=== PATIENT | male | born 1945 | race Caucasian/White ===

== ENCOUNTER 2017-06-18 16:13 | Emergency (ER) | payer OTHER ==
[2017-06-18 16:31] VITALS: BP 144/73
[2017-06-18] MEDS ORDERED: TETANUS IMMUNE GLOBULIN/PF 250 UNIT DISP.SYRIN IM ONE (17:21)
[2017-06-18] MEDS ORDERED: DIPH,PERTUSS(ACELL),TET VAC/PF 0.5 ML DISP.SYRIN IM ONE (17:22)
--- NOTE | 2017-06-18 17:56 | ED Physician Documentation ---
General Adult - HISTORIAN Historian: patient - HPI Stated Complaint: fish hook right ring finger Chief Complaint: General Adult Onset: hours (1-2 hours) Timing: still present Severity: mild Context: reaching down, got finger caught on fishhook Further Comments: yes (Patient was reaching down to get something and got his finger caught on a fishhook in the right 4 th distal diget.) - ROS CONST: no problems - PAST HX Past History: A-Fib, CHF, other (BPH) Other History: none Surgeries/Procedures: cholecystectomy, other (corneal tranplant, inguinal hernia repair) Immunizations: denies: tetanus ([place]) Allergies/Adverse Reactions: Allergies Allergy/AdvReac Type Severity Reaction Status Date / Time Penicillins AdvReac Unknown Rash Verified 06/18/17 16:32 Home Medications: Ambulatory Orders Medication Instructions Recorded NK [NK] 06/18/17 - SOCIAL HX Smoking History: non-smoker Alcohol Use: none Drug Use: none - FAMILY HX Family History: No - VITAL SIGNS Vital Signs: Vital Signs Temp Pulse Resp BP Pulse Ox 37.5 F L 67 20 144/73 99 06/18/17 16:13 06/18/17 17:31 06/18/17 17:31 06/18/17 16:13 06/18/17 17:31 - REVIEWED ASSESSMENTS Nursing Assessment Reviewed: Yes Vitals Reviewed: Yes Progress - Progress Progress: [place] was cleaned with betadine. hook cut at the shank. Hook with then pushed thru and removed. ED Results Lab/Radiology - Orders Orders: ED Orders Category Date Time Status Diph,Pertuss(Acell),Tet Vac/Pf [Adacel] Med 06/18/17 17:22 Discontinued 0.5 ml IM .ONCE ONE Tetanus Immune Globulin/Pf [Hypertet S-D 250 Units Med 06/18/17 17:21 Discontinued Syringe] 250 unit IM NOW ONE General Adult Physical Exam - PHYSICAL EXAM GENERAL APPEARANCE: no distress NECK: normal inspection RESPIRATORY: no resp distress, chest non-tender, breath sounds normal CVS: reg rate & rhythm, heart sounds normal, equal pulses SKIN: other (fish hook imbedded) EXTREMITIES: non-tender, normal range of motion NEURO: oriented X3, cognition normal Discharge Clincal Impression: [place] injury to finger Referrals: Sharad Bunch MD [Primary Care Provider] - 2 Days Additional Instructions: Patient advised to watch for infection. Home Medications: Ambulatory Orders NK [NK] 06/18/17 Condition: Stable Disposition: 01 HOME, SELF-CARE Decision to Admit: NO Date of Decison to Admit: 06/18/17 Decision Time: 18:02
== END 2017-06-18 17:31 | disposition home or self-care (01) ==
LOC: ED 16:13
DX: S61.244A Puncture wound with foreign body of right ring finger without damage to nail, initial encounter (principal); X58.XXXA Exposure to other specified factors, initial encounter; Y93.9 Activity, unspecified; Y99.9 Unspecified external cause status
CPT/HCPCS: 90471; 99283

== ENCOUNTER 2017-07-29 14:20 | Outpatient (CLI) | payer OTHER | END 2017-07-29 14:21 | LOC: LABRHC 14:20 | PROVIDERS: ATTEND Nurse Practitioner Family | DX: N32.9 Bladder disorder, unspecified (principal) | CPT/HCPCS: 87086 ==

== ENCOUNTER 2017-08-22 03:25 | Emergency (ER) | payer OTHER ==
[2017-08-22 04:17] LABS: MEAN CORPUSCULAR VOLUME 91.9 fl (80.0-100.0)
--- NOTE | 2017-08-22 04:27 | ED Physician Documentation ---
Male Genitourinary Problems - HISTORIAN Historian: patient, other (sister) - HPI Stated Complaint: Blood in urine, lower abdominal pain Chief Complaint: Male Genitourinary Problems Additional Information: pt c/o sy dx by DR CASTILLO as prostatitis. saw him yesterday foung VERY tender prostate. prescribed ofloxicin cost 1000dollars so didnt get it. had prev been on nitrofurantoin w/no help. additionally pt says has urinated 51 times since 1000 pm last noct Onset: other (had prostatitis several prev times but this seems the worst. saw urologist in past w/ several tests-apparently no other findings) Duration: continues in ED, better (rates pain 10-10 but laughs and jokes and does not appear to be in that much pain) Severity: severe (pt says significant. also pt has b een here) - Associated Symptoms Problems Urinating: blood in urine (had two episodes hematuria tonite but urine clear now-also frequency had lessened) Penile Pain: No Penile Swelling: No Inguinal Mass: No Flank Pain: left sided (andin backpt refuses catheter for residual urine) Abdominal Pain: moderate, suprapubic - ROS CONST: none GI/: denies: nausea, vomiting (but vomited 1x before came here) MS/SKIN/LYMPH: none CVS/RESP: denies: chest pain, shortness of breath - PAST HX Past History: other (reports CHF only plus the prostate) Cardiac Disease: CHF Surgeries/Procedures: none Allergies/Adverse Reactions: Allergies Allergy/AdvReac Type Severity Reaction Status Date / Time Penicillins AdvReac Unknown Rash Verified 08/22/17 03:40 Home Medications: Ambulatory Orders Medication Instructions Recorded Ofloxacin [Ofloxacin] 400 mg PO DAILY 08/22/17 - SOCIAL HX Smoking History: non-smoker Alcohol Use: none Drug Use: none - FAMILY HX Family History: none - VITAL SIGNS Vital Signs: Vital Signs Temp Pulse Resp BP Pulse Ox 98.2 F 87 18 134/96 98 08/22/17 03:25 08/22/17 03:25 08/22/17 03:25 08/22/17 03:25 08/22/17 03:25 - REVIEWED ASSESSMENTS Nursing Assessment Reviewed: Yes Vitals Reviewed: Yes ED Results Lab/Radiology - Lab Results Lab Results: Lab Results 08/22/17 08/22/17 04:10 04:10 WBC 4.90 K/ul K/ul (4.00-12.00) RBC 4.52 M/ul M/ul (3.90-5.20) Hgb 14.0 g/dL g/dL (12.0-18.0) Hct 41.5 % % (37.0-53.0) MCV 91.9 fl fl (80.0-100.0) MCH 31.0 pg pg (28.0-34.0) MCHC 33.8 g/dL g/dL (30.0-36.0) RDW 12.7 % % (11.3-14.3) Plt Count 243 K/mm3 K/mm3 (130-400) Sodium 137 mmol/L mmol/L (137-145) Potassium 3.8 mmol/L mmol/L (3.5-5.1) Chloride 102 mmol/L mmol/L (98-107) Carbon Dioxide 27 mmol/L mmol/L (22-30) BUN 17 mg/dL mg/dL (9-20) Creatinine 0.70 mg/dL mg/dL (0.66-1.25) Estimated Creat Clear 122 Est GFR ( Amer) > 60 (60 - ) Est GFR (Non-Af Amer) > 60 (60 - ) Glucose 97 mg/dL mg/dL (74-106) Calcium 8.3 mg/dL L mg/dL (8.4-10.2) Total Bilirubin 0.3 mg/dL mg/dL (0.2-1.3) AST 16 U/L U/L (15-46) ALT 29 U/L U/L (13-69) Alkaline Phosphatase 59 U/L U/L (38-126) Total Protein 6.7 g/dL g/dL (6.3-8.2) Albumin 3.6 g/dL g/dL (3.5-5.0) - Orders Orders: ED Orders Category Date Time Status Place IV Lock 1T Care 08/22/17 04:04 Active CBC PLATELETS NO DIFF Stat Lab 08/22/17 04:10 Completed CMP Stat Lab 08/22/17 04:10 Completed UA [URINALYSIS] Stat Lab 08/22/17 Ordered Ciprofloxacin HCl [Cipro] Med 08/22/17 04:51 Discontinued 1,000 mg PO NOW ONE HYDROcodone /APAP 5/325 [Goff 5/325] Med 08/22/17 04:54 Discontinued 1 each PO NOW ONE Phenazopyridine HCl [Pyridium] Med 08/22/17 04:53 Discontinued 200 mg PO NOW ONE Male Genitourinary Problems - EXAM General Appearance: mild distress Abdomen: tenderness, other (abdomen distended which pt says due to CHF. his legs are also swollen and HEART IS IRREGULAR.). No: abnml bowel sounds Neck: nml inspection Respiratory: no resp distress, chest non-tender, breath sounds normal. No: wheezes, rales, rhonchi CVS: No: reg rate & rhythm, heart sounds normal Back: non-tender, painless ROM Rectal: other (pt says DR CASTILLO did rectal yest but there was severe exquisite pain-also pt refuses catheter) Extremities: normal range of motion Neuro/Psych: oriented X3, motor nml, sensation nml, mood/affect nml Skin: warm/dry, normal color. No: cyanosis, diaphoresis Discharge Clincal Impression: prostatitis Referrals: Sharad Castillo MD [Primary Care Provider] - 2 Days Comments: pt to see DR CASTILLO today w/o fail. he would not allow catheter but his urine is now very clear Condition: Fair Disposition: 01 HOME, SELF-CARE Decision to Admit: NO Decision Time: 05:00
[2017-08-22 04:28] LABS: eGFR (African) > 60; eGFR (Non-African) > 60
[2017-08-22] MEDS: HYDROcodone /APAP 5/325 1 EACH TABLET PO ONE (05:00)
[2017-08-22] MEDS: PHENAZOPYRIDINE HCL 200 MG TABLET PO ONE (05:00)
[2017-08-22] MEDS: CIPROFLOXACIN HCL 500 MG TABLET PO ONE (05:00)
[2017-08-22 05:20] VITALS: BP 136/82
[2017-08-22 05:47] LABS: APPEARANCE,URINE CLEAR (CLEAR); COLOR,URINE YELLOW (YELLOW); OCCULT BLOOD,URINE NEGATIVE (NEGATIVE); PH URINE 6.5 (5.0 - 8.0)
== END 2017-08-22 05:15 | disposition home or self-care (01) ==
LOC: ED 03:25
DX: N41.9 Inflammatory disease of prostate, unspecified (principal)
CPT/HCPCS: 80053; 81002; 85027; A9270; 99283; S1016

== ENCOUNTER 2017-08-27 11:52 | Outpatient (CLI) | payer OTHER | END 2017-08-27 11:53 | LOC: CARD 11:52 | PROVIDERS: ATTEND Internal Medicine Cardiovascular Disease | DX: I50.9 Heart failure, unspecified (principal); Z86.79 Personal history of other diseases of the circulatory system | CPT/HCPCS: 99213 ==

== ENCOUNTER 2017-09-30 10:24 | Day surgery (SDC) | payer OTHER ==
[~2017-09-30 10:24] MED LIST: LACTATED RINGERS 1,000 ML IV.SOLN IV ONE; LIDOCAINE HCL/PF 2% 100 MG/5 ML VIAL IJ ONE; PROPOFOL 200 MG/20 ML VIAL IV ONE; SALINE FLUSH 10 ML DISP.SYRIN IVF ONE
--- NOTE | 2017-09-30 14:01 | GI Report ---
REFERRING PHYSICIAN: Dr. Sharad Bunch TOWN CLERK: Jerome Mead MD PROCEDURE MEDICATION: Propofol as per anesthesia. INDICATIONS: The patient is a 71-year-old man who is referred for a screening. His last colonoscopy was over 10 years ago. Apparently, he has had some prostatitis. He has occasionally had atrial fibrillation in the past. He is referred for screening for the above indications. PROCEDURE PERFORMED: Colonoscopy and polypectomy. DESCRIPTION OF PROCEDURE: An Olympus video colonoscope was advanced to the rectum. In the sigmoid, he does have some diverticula. The prep was just fair. There was kind of a dark fluid throughout the whole colon. We had to lavage many areas trying to improve visibility. There was a polyp at 30 cm in the sigmoid removed with electrocautery about 4 mm in size and a sessile. It was a redundant colon and took some maneuvering to get to the base of the cecum. We had to lavage the cecum to kind of clear the view. The appendiceal orifice was identified. The ileocecal valve was identified. On slow withdrawal, the cecum, ascending colon , and transverse colon had no obvious intraluminal lesions though the prep was just fair. The descending colon and sigmoid colon showed fairly extensive diverticular disease and the 4 mm sessile polyp removed at 30 cm in the sigmoid as described. Retroflexion of the rectum showed hemorrhoids. Patient tolerated the procedure well. FINDINGS: 1. Sigmoid polyp removed. 2. Diverticular disease of the colon. RECOMMENDATIONS: 1. Increase fiber in his diet. 2. Consider re-looking at his colon in 5 years pending the pathology on the polyp. 3. Next time, he needs to start his prep a day earlier to improve visibility. cc: Dr. Sharad RUIZ
== END 2017-09-30 10:25 ==
LOC: OPSURG 10:24
PROVIDERS: ATTEND Internal Medicine Gastroenterology
DX: Z12.11 Encounter for screening for malignant neoplasm of colon (principal); D12.5 Benign neoplasm of sigmoid colon; K57.30 Diverticulosis of large intestine without perforation or abscess without bleeding; I48.91 Unspecified atrial fibrillation
CPT/HCPCS: 45385; 88305; J2001; J2704; J7120; S1016

== ENCOUNTER 2018-08-12 17:10 | Outpatient (CLI) | payer MEDICARE, OTHER | END 2018-08-12 17:15 | disposition home or self-care (01) | LOC: LABRHC 17:10 | PROVIDERS: ATTEND Physician Assistant | DX: R35.0 Frequency of micturition (principal); M54.5 Low back pain | CPT/HCPCS: 87086 ==

== ENCOUNTER 2018-11-03 14:43 | Outpatient (CLI) | payer MEDICARE, OTHER | END 2018-11-03 15:00 | LOC: RT 14:43 | PROVIDERS: ATTEND Family Medicine | DX: I48.0 Paroxysmal atrial fibrillation (principal); R35.8 Other polyuria; R63.1 Polydipsia; R63.2 Polyphagia; R63.4 Abnormal weight loss; R73.9 Hyperglycemia, unspecified | CPT/HCPCS: 36415; 83036; 84443 ==

== ENCOUNTER 2019-01-04 20:37 | Emergency (ER) | payer MEDICARE, OTHER ==
[2019-01-04] MEDS ORDERED: ASPIRIN 81 MG CHEW TAB PO ONE (20:41)
[2019-01-04] MEDS ORDERED: DILTIAZEM HCL 25 MG/5 ML VIAL IVP ONE (21:03)
--- NOTE | 2019-01-04 21:08 | ED Physician Documentation ---
Chest Pain - HISTORIAN Historian: patient - HPI Stated Complaint: chest pain Chief Complaint: Chest Pain Additional Information: Patient presents to ED with left substernal chest pain with radiation down his left arm. He rates his pain as a discomfort not really a pain. Patient report raking leaves today and he may have over did things. He has a history of chronic atrial fibrillation but stopped taking his medications 4-5 years ago because it made him short of breath. Upon presentation HR 111 to 136 bpm. Onset: hours (2) Timing: gradual onset Duration: constant Last known Well Date: 01/04/19 Last Known Well Time: 16:00 Context: activity Severity: mild Quality: tightness Chest Pain Radiation: no radiation Chest Pain Signs/Symptoms: denies: nausea, vomiting, diaphoresis Worsened By: nothing Relieved By: nothing - ROS CONST: denies: fever MS/LYMPH: denies: neck pain GI/: denies: vomiting, nausea EYES/ENT: none SKIN/ENDO: none NEURO/PSYCH: denies: headache - PAST HX [place] risk factors: A-Fib DVT/PE Risk Factors: none TAD/AAA risk factors: none Neuro deficit: none GI disease: none Lung disease: none Surgeries/Procedures: none Allergies/Adverse Reactions: Allergies Allergy/AdvReac Type Severity Reaction Status Date / Time Penicillins AdvReac Unknown Rash Verified 01/04/19 21:29 Home Medications: Ambulatory Orders Medication Instructions Recorded Diltiazem HCl [Cardizem Cd] 180 mg PO DAILY #30 cap.er.24h 01/04/19 - SOCIAL HX Smoking History: non-smoker Alcohol Use: none Drug Use: none - FAMILY HX Family HX: none - VITAL SIGNS Vital Signs: Vital Signs Temp Pulse Resp BP Pulse Ox 136/82 08/22/17 05:15 - REVIEWED ASSESSMENTS Nursing Assessment Reviewed: Yes Vitals Reviewed: Yes Progress - Results/Orders Results/Orders: 2141 Cardizem 10mg IVP reduced HR t0 70 - 80s and he is now symptom free. ED Results Lab/Radiology - Orders Orders: ED Orders Category Date Time Status Place IV Lock 1T Care 01/04/19 20:41 Active CHEST 1VIEW [RAD] Stat Exams 01/04/19 Ordered CBC/PLATELET/DIFF Routine Lab 01/04/19 Ordered CMP Routine Lab 01/04/19 Ordered NT-proBNP Stat Lab 01/04/19 Ordered TROPONIN I (cTnI) Stat Lab 01/04/19 Ordered Aspirin [Suzy] Med 01/04/19 20:41 Discontinued 324 mg PO NOW ONE Diltiazem HCl [Cardizem] Med 01/04/19 21:03 Once 10 mg IVP STAT ONE EKG WITH COMPARISON Stat Ther 01/04/19 Ordered Chest Pain Physical Exam - EXAM General Appearance: no acute distress, alert EENT: DAR[place] Neck: nml inspection Respiratory: no resp. distress, chest non-tender, nml breath sounds CVS: irregularly irreg. rhythm, tachycardia Abdomen: soft, non-tender Skin: warm/dry Extremities: non-tender, no edema (+1 lower extremity edema bilaterally to mid tib/fib) Neuro: oriented X3 Discharge Clincal Impression: Chronic atrial fibrillation Referrals: Sharad Bunch MD [Primary Care Provider] - 2 Days Additional Instructions: 1. Take Cardizem CD every 24 hours 2. Add Aspirin 81 mg daily 3. Follow up with PCP within 3 days to recheck heart rate 4. Return to ER for new or worsening symptoms. Comments: Patient stopped taking Xarelto 4-5 years ago due to side effects. He does not want to take blood thinners. Condition: Stable Disposition: 01 HOME, SELF-CARE Decision to Admit: NO Date of Decison to Admit: 01/04/19 Decision Time: 21:46
[2019-01-04] MEDS ORDERED: DILTIAZEM HCL 120 MG CAP.ER.24H ONE (22:06)
[2019-01-04 23:13] VITALS: BP 118/79
--- NOTE | 2019-01-05 05:13 | Diagnostic Imaging Report ---
KRIS ABARCA [facility] [address] [facility] [address] [place], [place]. [address] Report Submission Date: Jan 04, 2019 9:30:27 PM CDT Patient Study Name: CONCETTA ALVARENGA Date: Jan 04, 2019 8:50:02 PM CDT Modality Type: DX Gender: M Description: CHEST 1VIEW : 49 Institution: [facility] Physician: KRIS ABARCA Chest AP portable Date of Exam: January 04, 2019. History: CHEST PAIN (Hx) / Findings: The cardiac and mediastinal silhouettes are normal. The lungs are clear. There is no evidence of infiltrate or effusion. The trachea is midline and aortic arch contour is normal. Impression: No acute cardiopulmonary abnormality. Electronically signed on Jan 04, 2019 9:30:27 PM CDT by: Dannielle RUIZ
[2019-01-05 06:07] LABS: MEAN CORPUSCULAR HEMOGLOBIN 31.3 pg (28.0-34.0)
[2019-01-05 06:08] LABS: BASOPHILS % 0.4 (0.0-1.5); MONOCYTES % 5.2 % (0.0-11.0); NEUTROPHILS # 5.7 # k/uL (1.4-7.7); eGFR (Non-African) > 60
[2019-01-05] MEDS ORDERED: DILTIAZEM HCL 120 MG CAP.ER.24H PO ONE (21:49)
== END 2019-01-04 22:20 | disposition home or self-care (01) ==
LOC: ED 20:37
DX: I48.2 Chronic atrial fibrillation (principal)
CPT/HCPCS: 36415; 71045; 80053; 83880; 84484; 85025; 93005; 96374; 99284; 99285; J3490; S1016

== ENCOUNTER 2019-07-29 15:17 | Outpatient (CLI) | payer MEDICARE, OTHER | END 2019-07-29 15:30 | LOC: LAB 15:17 | PROVIDERS: ATTEND Family Medicine | DX: K52.9 Noninfective gastroenteritis and colitis, unspecified (principal) | CPT/HCPCS: 36415; 83516; 87045; 87046; 87177; 87209; 87329; 87427; 87493; 89055 ==

== ENCOUNTER 2019-10-26 18:51 | Outpatient (CLI) | payer MEDICARE, OTHER | END 2019-10-26 18:56 | LOC: LABRHC 18:51 | PROVIDERS: ATTEND Family Medicine | DX: R30.0 Dysuria (principal) | CPT/HCPCS: 87086 ==